=== PATIENT | female | born 1945 | race Caucasian/White ===

== ENCOUNTER → 2022-01-28 13:16 | Outpatient (BNVA) | payer MEDICARE, BC, SELFPAY | PROVIDERS: Family Provider Internal Medicine; PCP Internal Medicine; Visit Provider Internal Medicine Cardiovascular Disease | DX: I25.10 Atherosclerotic heart disease of native coronary artery without angina pectoris (principal); I10 Essential (primary) hypertension; I47.1 Supraventricular tachycardia; E78.2 Mixed hyperlipidemia; I36.1 Nonrheumatic tricuspid (valve) insufficiency; Z79.82 Long term (current) use of aspirin | CPT/HCPCS: 99214 ==

== ENCOUNTER 2022-02-21 09:17 | Outpatient (CLI) | payer MEDICARE, BC, SELFPAY ==
--- NOTE | 2022-02-21 09:58 | CT_ITS ---
WS: [id number] CT NECK TECHNIQUE: Contrast-enhanced CT of the neck with coronal and sagittal reformatted images. CLINICAL INFORMATION: HEMOPTYSIS COMPARISON: None. DLP: 219.[address] scans at [facility] use at least one of these dose optimization techniques: automated e xposure control; mA and/or kV adjustment per patient size (includes targeted exams where dose is matc hed to clinical indication); or iterative reconstruction. FINDINGS: Mastoid air cells are well aerated. Mucosal thickening in the maxillary sinuses. Inspissated secretio ns with calcifications in the RIGHT maxillary sinus with sinusitis. Nodular mucosal thickening in the LEFT maxillary sinus Normal parapharyngeal fat. Normal posterior nasopharynx. Parotid glands are normal. Normal submandibu lar glands. Normal tongue base and posterior nasopharynx. Normal parapharyngeal fat. Normal palatine tonsils. Normal vallecula and piriform sinuses. Normal epiglottis. No evidence of supraglottic or kati ttic mass. Normal subglottic airway. Thyroid gland is normal. Normal visualized thoracic aorta. Marked thoracic scoliosis. Chronic emphyse matous changes in the lung apices. Both vertebral arteries are patent. LEFT dominant vertebral artery. Mild RIGHT carotid bulb calcifica tion. Both ICAs are patent to the skull base. Partially visualized intracranial contents are normal f or age. No cervical lymphadenopathy. Disc space narrowing C3-C4 and C4-C5. CT/CT neck w con* [id number] IMPRESSION: 1. Normal posterior nasopharynx. Normal parapharyngeal fat. 2. Normal salivary glands. 3. No evidence of supraglottic or glottic mass. Normal glottis. Normal subglot tic airway. 4. Marked thoracic scoliosis convex RIGHT. 5. Inflammatory changes in the maxillary sinuses RIGHT greater than LEFT with RIGHT maxillary sinusitis. 6. Mastoid air cells are well aerated.
[2022-02-21 11:32] LABS: Blood Urea Nitrogen 11 mg/dL (8-23)
[2022-02-21] MEDS: iohexol 300 mg/mL 50 mL Btl IV (11:32)
== END 2022-02-21 09:18 | disposition home or self-care (01) ==
LOC: RAD 09:19
PROVIDERS: Family Provider Internal Medicine; PCP Internal Medicine; Visit Provider Specialist
DX: R04.2 Hemoptysis (principal)
CPT/HCPCS: 70491; 82565; 84520

== ENCOUNTER 2022-02-24 09:28 | Outpatient (CLI) | payer MEDICARE, BC, SELFPAY ==
--- NOTE | 2022-02-24 09:48 | CT_ITS ---
WS: [id number] CT CHEST WITH INTRAVENOUS CONTRAST HISTORY: HEMOPTYSIS TECHNIQUE: Contiguous 5 mm axial imaging performed on the thorax. Coronal and sagittal reformats are submitted. All CT scans at [facility] use at least one of these dose optimization techniques: automated exposure control; mA and/or kV adjustment per patient size (includes targeted exams where dose is matched to clinical indication); or iterative reconstruction. CONTRAST: Omnipaque 300; 95 mL IV. DLP: 520.06 mGy.cm COMPARISON: None available. Lungs and central airway: Marked deformity of the lungs and thorax due to the patient's severe RIGHT scoliosis. No mass or pulmonary nodule. Mild bronchial thickening and atelectasis is subsegmental at the RIGHT lung base. There is also mild RIGHT lower lobe bronchiectasis associated with the bronchial wall thickening. Pleura: Normal. No pleural effusion. Heart and pericardium: Moderate enlargement of the heart chambers. Mediastinum and douglas: No mediastinum or hilar adenopathy. Vessels: Very mild atherosclerosis aorta. Normal size pulmonary artery. Extensive atherosclerosis in the [place] coronary arteries. Calcification along the mitral valve annular plane. Chest wall and lower neck: Marked deformity of the chest wall due to the scoliosis. Upper abdomen: Prior gastric bypass. Mild cortical thinning and atrophy. Upper pole of each kidney. N o adrenal mass. Osseous structures: Severe thoracic dextroscoliosis and lumbar levoscoliosis. CT/CT chest w con* [id number] IMPRESSION: 1. Subsegmental atelectasis and bronchial wall thickening and bronchiectasis R IGHT lower lobe. 2. No pulmonary mass or nodule. 3. No adenopathy. 4. Severe thoracolumbar scoliosis resulting in deformity of the thorax. 5. Heavy atherosclerotic calcification within the [place] coronary arteries and mild cardiomegaly.
[2022-02-24] MEDS: iohexol 300 mg/mL 50 mL Btl IV (10:11)
== END 2022-02-24 09:29 | disposition home or self-care (01) ==
LOC: RAD 09:29
PROVIDERS: PCP Internal Medicine; Visit Provider Specialist
DX: R04.2 Hemoptysis (principal); I25.10 Atherosclerotic heart disease of native coronary artery without angina pectoris; I51.7 Cardiomegaly; J98.11 Atelectasis; J47.9 Bronchiectasis, uncomplicated; M41.85 Other forms of scoliosis, thoracolumbar region
CPT/HCPCS: 71260

== ENCOUNTER 2022-07-23 19:47 | Emergency (ER) | payer MEDICARE, BC, SELFPAY ==
[2022-07-23 19:59] VITALS: BP 105/61; PULSE 66; RESP 16; TEMP 36.6; O2SAT 95; BMI 22.4
--- NOTE | 2022-07-23 20:01 | CTR_ITS ---
PROCEDURE INFORMATION: Exam: CT Cervical Spine Without Contrast Exam date and time: 07/23/2022 11:07 PM Age: 77 years old Clinical indication: Other: Syncope; Patient HX: Syncopal episode this evening TECHNIQUE: Imaging protocol: Computed tomography of the cervical spine without contrast. Radiation optimization: All CT scans at this facility use at least one of these dose optimization techniques: automated exposure control; mA and/or kV adjustment per patient size (includes targeted exams where dose is matched to clinical indication); or iterative reconstruction. COMPARISON: CT neck w con* [id number] 02/21/2022 11:25 AM RADIATION DOSE METRICS: Total DLP (mGy-cm): 141.87 FINDINGS: Bones/joints: Degenerative disc changes C3-C4 and C4-C5. No acute bony findings. Lungs: Lung apices are normal. Soft tissues: Unremarkable. CT/CT cervical spin wo con* [id number] IMPRESSION: No acute findings.
--- NOTE | 2022-07-23 20:01 | CTR_ITS ---
PROCEDURE INFORMATION: Exam: CT Head Without Contrast Exam date and time: 07/23/2022 11:04 PM Age: 77 years old Clinical indication: Syncope and collapse; Patient HX: Syncopal episode this evening. TECHNIQUE: Imaging protocol: Computed tomography of the head without contrast. Radiation optimization: All CT scans at this facility use at least one of these dose optimization techniques: automated exposure control; mA and/or kV adjustment per patient size (includes targeted exams where dose is matched to clinical indication); or iterative reconstruction. COMPARISON: CT neck w con* [id number] 02/21/2022 11:25 AM RADIATION DOSE METRICS: Total DLP (mGy-cm): 1028.88 FINDINGS: Brain: Mild periventricular white matter low densities are most consistent with chronic small vessel ischemic change. No findings of intracranial hemorrhage. Cerebral ventricles: No ventriculomegaly. Paranasal sinuses: Visualized sinuses are unremarkable. No fluid levels. Mastoid air cells: Visualized mastoid air cells are well aerated. Bones/joints: No acute findings. Soft tissues: Unremarkable. CT/CT head wo con* [id number] IMPRESSION: No acute intracranial findings. Right maxillary sinus inflammatory changes with acute component.
--- NOTE | 2022-07-23 20:01 | XRR_ITS ---
PROCEDURE INFORMATION: Exam: XR Chest Exam date and time: 07/23/2022 8:14 PM Age: 77 years old Clinical indication: Cough; Additional info: Syncope TECHNIQUE: Imaging protocol: Radiologic exam of the chest. Views: 1 view. COMPARISON: CT chest w con* [id number] 02/24/2022 10:15 AM FINDINGS: Lungs: Unremarkable. No consolidation. Pleural spaces: Unremarkable. No pleural effusion. No pneumothorax. Heart/Mediastinum: Unremarkable. No cardiomegaly. Bones/joints: Severe scoliosis. Suture anchors are seen at left humeral head. XR/XR chest 1V portable [id number] IMPRESSION: No acute findings.
--- NOTE | 2022-07-23 20:41 | ED_ITS ---
HPI - Syncope General: Chief Complaint: Syncope Stated Complaint: Syncope Time Seen by Provider: 07/23/22 20:41 History of Present Illness: Ms. Blackman is a 77-year-old lady with history of hypertension and hyperlipidemia and recent diagnosis of COVID presenting to the emergency department due to dizziness/lightheadedness with syncopal type episode today. She has had poor p.o. intake and was with family about 730. She got a blank look and possible back and she began to follow-up with Gamaliel though she did have her leg caught under her. Currently back to neurologic baseline. Dale es history of frequent similar. Intensity of generalized malaise is moderate. Pain in ankle is throbbing and moderate with worse pain attempting to ambulate. No other specific changes in health, exacerbating, or alleviating factors identified. Onset (ago): hour(s) Description of event: other Witnessed: Yes - by Bystander Review of Systems General: Reports: 10 or more systems reviewed and unremarkable except in HPI and below PFSH ED PFSH: Medical History (Updated 08/01/22 @ 00:01 by ) Arrhythmia ASHD (arteriosclerotic heart disease) GERD (gastroesophageal reflux disease) Hyperlipidemia Hypertension NSTEMI (non-ST elevation myocardial infarction) Tricuspid regurgitation Most recent echocardiogram was done in April 2015. She had a mild to moderate mitral with a moderate tricuspid regurgitation. LV ejection fraction was 71%. Surgical History H/O hernia repair H/O shoulder surgery H/O: hysterectomy Hx of cholecystectomy Family History Father CAD (coronary artery disease) Stroke Son Cancer Other Congestive heart failure Hypertension Denies family history of Diabetes Clotting disorder Dementia Chronic kidney disease (CKD) Suicide Anesthesia complication Bleeding disorder Lung disease Social History Smoking and tobacco status: never smoked Alcohol intake: never Physical Exam Const: COMMON NORMALS: patient oriented x3 and alert GENERAL APPEARANCE: cooperative and well developed HENMT: COMMON NORMALS: normocephalic and atraumatic HEAD & SCALP: normocephalic and atraumatic THROAT: posterior oropharynx normal Eye: COMMON NORMALS: conjunctivae normal CONJUNCTIVA: Yes conjunctivae normal SCLERA: sclerae normal Neck/C-Spine: COMMON NORMALS: supple GENERAL: Yes trachea midline Resp: COMMON NORMALS: clear to auscultation bilaterally EFFORT & INSPECTION: Yes able to speak in complete sentences AUSCULTATION: clear to auscultation bilaterally Cardio: COMMON NORMALS: regular rate and regular rhythm RATE: regular rate RHYTHM: regular rhythm GI: COMMON NORMALS: Soft to palpation PALPATION: Yes Soft to palpation and No Tenderness to palpation present (GI) Extremity: NARRATIVE EXTREMITY EXAM: swelling and tenderness to lateral malleolus. distal cms intact. no open fracture. GENERAL: Yes normal exam except as noted and No edema Neuro: COMMON NORMALS: patient oriented x3, CN's II-XII intact bilaterally, moves all extremities, no focal motor deficits and no sensory deficits noted SENSORIUM/ORIENTATION: Yes alert and No Orientation impaired Psych: COMMON NORMALS: mental status grossly normal and Normal thought process present THOUGHT PROCESS: Normal thought process present Course ED course: - Patient was seen and evaluated by me at bedside - Patient placed on cardiac monitors, IV access obtained - Initial evaluation notable for exam as above. EKG shows sinus rhythm, first AV block, no STEMI. - Labs and xrays personally interpreted by me -IV fluids given - Labs notable for no leukocytosis, no hemoglobin, cytopenia present. Metabolic panel with evidence of dehydration. Delta troponin negative. No evidence of UTI. - Imaging notable for no acute pathology identified on head or cervical spine CT imaging. Chest x-ray negative for acute lobar consolidation or pneumothorax. Ankle x-ray notable for nondisplaced lateral malleolus fracture. - Upon serial reexamination after treatment the patient was improved - Based on patient history, evaluation, and testing as interpreted the most likely cause of the patient's condition is dehydration with possible orthostatic syncope. - The results of ED evaluation were discussed with the patient including possible disposition options. Patient is comfortable with at home management. I discussed prescriptions and/or symptomatic cares (if applicable) including appropriate and responsible use, followup plan, and return precautions. The patient verbalized understanding and felt safe for discharge. Plan to follow-up with orthopedics. - Patient discharged in satisfactory condition. Note: Click bubbles or prepopulated gillette in note writing are used for assistance with data collection and billing and are inherently more limited than narrative and other text portions of this note. Please use narrative for additional clinical history and defer to narrative/free test for any case of contradictory information. If information appears in only free text or click bubble it should be considered present or absent as reported. Please contact note publicity writer for clarifications of clinical information or contradictory information. MDM is a brief summary, contradictory or erroneous seeming information should be clarified and full note should be reviewed. Vital Signs: Vital signs: Vital Signs Temperature 98 F 07/23/22 19:59 Pulse Rate 58 L 07/24/22 01:30 Respiratory Rate 23 H 07/24/22 01:30 Blood Pressure 102/55 07/24/22 01:30 Pulse Oximetry 93 07/24/22 01:30 Oxygen Delivery Me thod 07/23/22 19:59 MDM - Syncope Medical Decision Making 77-year-old lady with recent diagnosis of COVID presenting with syncopal episode. Nonfocal. Head to toe exam with isolated injury. Labs likely con sistent with dehydration patient was improved with fluids. She is comfortable with outpatient management. She will require orthopedic follow-up. Medical Records I reviewed the patient's medical records. Lab Data I reviewed the patient's lab results. : 07/23/22 20:56 07/23/22 20:56 Radiology Impressions Cervical Spine CT 07/23/22 20:01 IMPRESSION: No acute findings. Chest X-Ray 07/23/22 20:01 IMPRESSION: No acute findings. Head CT 07/23/22 20:01 IMPRESSION: No acute intracranial findings. Right maxillary sinus inflammatory changes with acute component. Ankle X-Ray 07/23/22 21:06 IMPRESSION: Nondisplaced lateral malleolar fracture Laboratory Results WBC 4.8 10^3/uL (4.0-10.0) 07/23/22 20:56 RBC 4.69 10^6/uL (4.1-5.3) 07/23/22 20:56 Hgb 13.8 g/dL (11.5-15.3) 07/23/22 20:56 Hct 43.8 % (37.0-47.0) 07/23/22 20:56 MCV 93.4 fl (81-99) 07/23/22 20:56 MCH 29.4 pg (28.0-34.0) 07/23/22 20:56 MCHC 31.5 g/dL (30.0-36.0) 07/23/22 20:56 RDW 14.1 % (12.1-15.1) 07/23/22 20:56 Plt Count 103 10^3/cmm (130-400) L 07/23/22 20:56 MPV 13.7 fL (7.4-10.4) H 07/23/22 20:56 Neut % (Auto) 63.8 % 07/23/22 20:56 Lymph % (Auto) 24.0 % 07/23/22 20:56 [place] % (Auto) 11.4 % 07/23/22 20:56 Eos % (Auto) 0.0 % 07/23/22 20:56 Baso % (Auto) 0.6 % 07/23/22 20:56 Neut # (Auto) 3.03 10^3/uL (1.8-7.7) 07/23/22 20:56 Lymph # (Auto) 1.1 10^3/uL (0.8-4.8) 07/23/22 20:56 [place] # (Auto) 0.5 10^3/uL (0.2-0.9) 07/23/22 20:56 Eos # (Auto) 0.0 10^3/uL (0.0-0.8) 07/23/22 20:56 Baso # (Auto) 0.0 10^3/uL (0.0-0.1) 07/23/22 20:56 Nucleated RBC % (auto) 0 % 07/23/22 20:56 Nucleated RBCs # 0.0 /100WBC 07/23/22 20:56 Sodium 129 mmol/L (136-145) L 07/23/22 20:56 Potassium 4.0 mmol/L (3.5-5.1) 07/23/22 20:56 Chloride 93 mmol/L (98-107) L 07/23/22 20:56 Carbon Dioxide 23 mmol/L (22-29) 07/23/22 20:56 Anion Gap 17.0 (5-19) 07/23/22 20:56 BUN 27 mg/dL (8-23) H 07/23/22 20:56 Creatinine 1.2 mg/dL (0.5-0.9) H 07/23/22 20:56 GFR Calculation Not Reportable 07/23/22 20:56 Glucose 84 mg/dL (65-115) 07/23/22 20:56 Calculated Osmolality 272 mOsm/kg (285-295) L 07/23/22 20:56 Calcium 8.2 mg/dL (8.5-10.5) L 07/23/22 20:56 Total Bilirubin 1.0 mg/dL (0.15-1.2) 07/23/22 20:56 AST 37 U/L (0-32) H 07/23/22 20:56 ALT 15 U/L (0-33) 07/23/22 20:56 Alkaline Phosphatase 103 U/L (35-105) 07/23/22 20:56 Troponin T Baseline 15 ng/L (0-10) H 07/23/22 20:56 Troponin T 120 Minute 13.80 ng/L (0-10) H 07/23/22 23:45 Delta Troponin T -1.20 ABS# (0-10) L 07/23/22 23:45 Total Protein 6.7 g/dL (6.6-8.7) 07/23/22 20:56 Albumin 3.4 g/dL (3.5-5.2) L 07/23/22 20:56 Globulin 3.3 g/dL (1.3-4.6) 07/23/22 20:56 Urine Color Yellow (Yellow) 07/23/22 23:02 Urine Appearance Clear (CLEAR) 07/23/22 23:02 Urine pH 5 (5-7) 07/23/22 23:02 Ur Specific [place] 1.015 (1.005-1.030) 07/23/22 23:02 Urine Protein Neg (Negative) 07/23/22 23:02 Urine Glucose (UA) Norm (Normal) 07/23/22 23:02 Urine Ketones 1+ (Negative) H 07/23/22 23:02 Urine Blood Neg (Negative) 07/23/22 23: Urine Nitrate Negative (Negative) 07/23/22 23:02 Urine Bilirubin Neg (Negative) 07/23/22 23:02 Urine Urobilinogen Norm mg/dL (Negative) 07/23/22 23:02 Ur Leukocyte Esterase Negative (Negative) 07/23/22 23:02 Discharge Plan Discharge Patient Disposition: Home Clinical Impression: Dehydration, Syncope due to orthostatic hypotension, Fractured lateral malleolus Condition: Stable Prescriptions: New oxycodone 5 mg tablet 5 mg PO Q4H PRN (Reason: pain) Qty: 30 0RF No Action nitroglycerin [Nitrostat] 0.4 mg tablet, sublingual 0.4 mg SUBLINGUAL Q5M PRN diphenhydramine HCl [Benadryl] 25 mg capsule 25 mg PO TID PRN pantoprazole 40 mg tablet,delayed release (DR/EC) 40 mg PO QDAY tramadol 50 mg tablet 100 mg PO TID PRN (DME) Cam Walker. See Rx Instructions .ROUTE .MEDSUPPLY Qty: 1 0RF Rx Instructions: As directed (DME) LACE UP ANKLE BRACE . See Rx Instructions .Route .MEDSUPPLY Qty: 1 0RF Rx Instructions: As directed atorvastatin 40 mg tablet 40 mg PO QDAY Qty: 90 3RF aspirin 81 mg tablet,delayed release (DR/EC) 81 mg PO QDAY Qty: 90 3RF metoprolol tartrate 50 mg tablet 50 mg PO BID Qty: 180 3RF Discharge Orders: Discharge ED (Routine); Ordered 07/24/22 Ordered By: Mikal Gray Referrals: Ang Simpson DO [Primary Care Provider] - Discharge Diet: Usual diet Discharge Activity: Limit activity as instructed Patient Instructions: Dehydration (ED), Ankle Fracture (ED), Syncope (ED), Splint Care (ED), Opioid Safety, Pain Management Activity Restrictions/Additional Instructions: Thank you for visiting the emergency department. You were seen and evaluated for syncope with ankle injury. You were found to have a fracture of the lateral malleolus of the ankle. This was splinted and you require follow-up with orthopedics. I will message case management for follow-up. Please do not bear weight on this extremity. The most likely cause of your fainting is dehydration and low blood pressure. Please ensure that you are staying hydrated. Return to the emergency department for uncontrolled pain, loss of sensation or movement in your foot or toes, bluing or significant color changes, any new neurologic symptoms, chest pain, shortness of breath, repeated syncope or anything else that you are concerned about a feel needs emergency department evaluation. Coding Level of Care Code ED Steel Post Installer Supervisor for Dimitri Duke
--- NOTE | 2022-07-23 20:46 | ECG_ITS ---
[facility] Test Date: 2022-07-23 Pat Name: Мария Blackman Department: Room: Gender: Female Per Diem Registered Nurse: : 1945 Requested By: Miakl Gray Order Number: [id number] Melida MD: Sweta Villasenor M.D. Measurements Intervals [place] Rate: 63 P: 59 FL: 183 QRS: 4 QRSD: 111 T: 132 QT: 441 QTc: 454 Interpretive Statements SINUS RHYTHM MODERATE INTRAVENTRICULAR CONDUCTION DELAY [110+ ms QRS DURATION] MODERATE T-WAVE ABNORMALITY, CONSIDER LATERAL ISCHEMIA [-0.1+ mV T-WAVE IN I/aVL/V5/V6] Compared to ECG 05/22/2016 19:37:00 Intraventricular conduction delay now present Possible ischemia now present Sinus arrhythmia no longer present T-wave abnormality still present Electronically Signed On 07-24-2022 12:52:37 CDT by Sweta Villasenor M.D. [id number]
[2022-07-23 21:03] LABS: Basophils % 0.6 %; Hematocrit 43.8 % (37.0-47.0); Hemoglobin 13.8 g/dL (11.5-15.3); Lymphocytes # 1.1 10^3/uL (0.8-4.8); Mean Corpuscular HGB Conc 31.5 g/dL (30.0-36.0); Mean Corpuscular Hemoglobin 29.4 pg (28.0-34.0); Mean Corpuscular Volume 93.4 fl (81-99); Mean Platelet Volume 13.7 fL (7.4-10.4); Monocytes # 0.5 10^3/uL (0.2-0.9); Monocytes % 11.4 %; Neutrophils # 3.03 10^3/uL (1.8-7.7); Neutrophils % 63.8 %; Nucleated Red Blood Cells % 0 %; Platelet Count 103 10^3/cmm (130-400); Positive M 1; Red Blood Count 4.69 10^6/uL (4.1-5.3); Red Cell Distribution Width 14.1 % (12.1-15.1); White Blood Count 4.8 10^3/uL (4.0-10.0)
--- NOTE | 2022-07-23 21:06 | XRR_ITS ---
PROCEDURE INFORMATION: Exam: XR Right Ankle Exam date and time: 07/23/2022 9:12 PM Age: 77 years old Clinical indication: Pain; Ankle; Right; Additional info: Fall, swelling, pain TECHNIQUE: Imaging protocol: Radiologic exam of the Right ankle. Views: 3 or more views. COMPARISON: No relevant prior studies available. FINDINGS: Bones/joints: Nondisplaced fracture of lateral malleolus. No findings of dislocation or subluxation. Soft tissues: Soft tissue swelling laterally. XR/XR ankle RT min 3V* [id number] IMPRESSION: Nondisplaced lateral malleolar fracture
[2022-07-23 21:25] VITALS: BP 107/58; BP 117/59; BP 79/52; PULSE 65; PULSE 67; PULSE 69
[2022-07-23 21:27] LABS: Troponin(5th) Baseline 15 ng/L (0-10)
[2022-07-23 21:28] LABS: Alanine Aminotransferase 15 U/L (0-33); Albumin Level 3.4 g/dL (3.5-5.2); Alkaline Phosphatase 103 U/L (35-105); Aspartate Amino Transferase 37 U/L (0-32); Blood Urea Nitrogen 27 mg/dL (8-23); Calcium 8.2 mg/dL (8.5-10.5); Carbon Dioxide 23 mmol/L (22-29); Chloride 93 mmol/L (98-107); Globulin 3.3 g/dL (1.3-4.6); Glucose 84 mg/dL (65-115); Osmolality Calculated 272 mOsm/kg (285-295); Sodium 129 mmol/L (136-145); Total Protein 6.7 g/dL (6.6-8.7)
[2022-07-23] MEDS: sodium chloride 0.9% 1,000 ML 999 ML IV (21:31)
[2022-07-23 21:54] LABS: Slide Review Slide Review Perform
--- NOTE | 2022-07-23 22:25 | ECG_ITS ---
[facility] Test Date: 2022-07-23 Pat Name: Мария Blackman Department: Room: Gender: Female Liner Checker: : 1945 Requested By: Mikal Gray Order Number: [id number] Melida MD: Sweta Villasenor M.D. Measurements Intervals [place] Rate: 59 P: 82 [place]: 204 QRS: 8 QRSD: 107 T: 88 QT: 442 QTc: 438 Interpretive Statements SINUS BRADYCARDIA POSSIBLE LATERAL MYOCARDIAL INFARCTION , OF INDETERMINATE AGE Compared to ECG 07/23/2022 20:46:36 Myocardial infarct finding now present Sinus rhythm no longer present Intraventricular conduction delay no longer present T-wave abnormality no longer present Possible ischemia no longer present Electronically Signed On 07-24-2022 12:58:53 CDT by Sweta Villasenor M.D. [id number]
[2022-07-23 23:48] LABS: Add Urine Microscopic? NO; Charge for UA Resulting for Rev
[2022-07-24] VITALS: BP 106/56; PULSE 57; RESP 19; O2SAT 93
[2022-07-24] LABS: Bilirubin Urine Neg (Negative); Blood Urine Neg (Negative); Glucose Urine UA Norm (Normal); Ketones Urine 1+ (Negative); Leukocyte Esterase Urine Negative (Negative); Nitrate Urine Negative (Negative); Protein Urine Neg (Negative); Specific Gravity, Urine 1.015 (1.005-1.030); Urine Appearance Clear (CLEAR); Urine Color Yellow (Yellow); Urobilinogen Urine Norm (Negative); pH Urine 5 (5-7)
[2022-07-24 00:30] VITALS: BP 114/56; PULSE 63; RESP 22; O2SAT 94
[2022-07-24 01:00] VITALS: BP 109/53; PULSE 62; RESP 18; O2SAT 97
[2022-07-24 01:30] VITALS: BP 102/55; PULSE 58; RESP 23; O2SAT 93
--- NOTE | 2022-07-24 02:17 | PC.NURSE ---
pt sat up on side of bed, denies dizziness, reports she has a wheelchair at home.
--- NOTE | 2022-07-24 11:33 | DCPLANNER ---
Addendum entered by Kennedi Heller 07/31/22 12:12: Patient had a follow up appointment scheduled for 07.30.[address] Quintero at ortho - patient did attend appointment. Original Note: consumer affairs manager had message to schedule a follow up appointment for patient with ortho. consumer affairs manager sent patients information to the front office staff at ortho. Patients information will be printed and reviewed. Clinic will call patient with appointment information.
== END 2022-07-24 02:45 | disposition home or self-care (01) ==
PROVIDERS: Emergency Provider Emergency Medicine; PCP Internal Medicine
DX: I95.1 Orthostatic hypotension (principal); E86.0 Dehydration; S82.61XA Displaced fracture of lateral malleolus of right fibula, initial encounter for closed fracture; Z79.82 Long term (current) use of aspirin; E78.5 Hyperlipidemia, unspecified; I10 Essential (primary) hypertension; I25.2 Old myocardial infarction; W19.XXXA Unspecified fall, initial encounter
CPT/HCPCS: 29515; 70450; 71045; 72125; 73610; 80053; 81003; 84484; 85025; 93005; 96360; 99285; J7030

== ENCOUNTER → 2022-07-30 08:15 | Outpatient (BNVA) | payer MEDICARE, BC, SELFPAY | PROVIDERS: PCP Internal Medicine; Visit Provider Specialist | DX: S82.64XA Nondisplaced fracture of lateral malleolus of right fibula, initial encounter for closed fracture (principal); W18.30XA Fall on same level, unspecified, initial encounter | CPT/HCPCS: 73610 ==

== ENCOUNTER 2022-07-30 15:07 | Outpatient (CLI) | payer MEDICARE, BC, SELFPAY | END 2022-07-30 15:08 | disposition home or self-care (01) | LOC: SPT 15:08 | PROVIDERS: PCP Internal Medicine; Visit Provider Specialist | DX: Z46.89 Encounter for fitting and adjustment of other specified devices (principal); S82.64XA Nondisplaced fracture of lateral malleolus of right fibula, initial encounter for closed fracture; W18.30XA Fall on same level, unspecified, initial encounter | CPT/HCPCS: 27786; 97760; 99203; L1902; L4361 ==

== ENCOUNTER → 2022-08-20 08:11 | Outpatient (BNVA) | payer MEDICARE, BC, SELFPAY | PROVIDERS: PCP Internal Medicine; Visit Provider Specialist | DX: Z98.890 Other specified postprocedural states (principal); S82.64XD Nondisplaced fracture of lateral malleolus of right fibula, subsequent encounter for closed fracture with routine healing; X58.XXXD Exposure to other specified factors, subsequent encounter | CPT/HCPCS: 73610; 99024 ==

== ENCOUNTER → 2022-09-10 08:19 | Outpatient (BNVA) | payer MEDICARE, BC, SELFPAY | PROVIDERS: PCP Internal Medicine; Visit Provider Specialist | DX: S82.64XA Nondisplaced fracture of lateral malleolus of right fibula, initial encounter for closed fracture (principal); X58.XXXA Exposure to other specified factors, initial encounter | CPT/HCPCS: 73610; 99024 ==

== ENCOUNTER 2023-01-11 12:30 | Emergency (ER) | payer MEDICARE, SELFPAY ==
--- NOTE | 2023-01-11 12:33 | XRR_ITS ---
PROCEDURE INFORMATION: Exam: XR Right Hip Exam date and time: 01/11/2023 12:52 PM Age: 78 years old Clinical indication: Injury or trauma; Fall; Blunt trauma (contusions or hematomas); Right; Groin and hip TECHNIQUE: Imaging protocol: Radiologic exam of the right hip. Views: 1 view hip with pelvis when performed. COMPARISON: No relevant prior studies available. FINDINGS: Bones/joints: Osteopenia. Mild chronic deformity right inferior pubic ramus. Suboptimal visualization of the patient's known right superior pubic ramus and right sacral ala fractures. No dislocation. Mild right hip joint osteoarthrosis. Soft tissues: Grossly unremarkable. XR/XR hip RT 2-3V wo/w pel* [id number] IMPRESSION: 1. Suboptimal visualization of the patient's known right superior pubic ramus and right sacral ala fractures. 2. Additional findings, as above.
[2023-01-11 12:39] VITALS: BP 157/91; PULSE 68; RESP 16; TEMP 36.3; O2SAT 91; BMI 24.2
--- NOTE | 2023-01-11 12:47 | W.ED.FALL ---
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 States she feels like the pain is more in her inner hip and the outer hip and points to her rami. She also did hit her head does have a hematoma but denies any loss of consciousness denies neck pain. Associated symptoms-after fall: Denies abdominal pain, chest pain or headache(s) Review of Systems Const: Denies: fever(s), chills, body aches or change in appetite Eyes: Denies: blurry vision or eye discomfort ENMT: Denies: throat pain or dental pain Card: Denies: chest pain Resp: Denies: dyspnea GI: Denies: abdominal pain, nausea, vomiting or diarrhea : Denies: dysuria Musc: Reports: extremity pain Skin/Breast: Denies: rash Neuro: Denies: headache(s) Psych: Denies: depression Geo/Lymph: Denies: easy bruising All/Imm: Denies: urticaria PFSH ED PFSH: Medical History (Updated 01/11/23 @ 14:02 by Ruben Graves MD) Arrhythmia ASHD (arteriosclerotic heart disease) GERD (gastroesophageal reflux disease) Hyperlipidemia Hypertension NSTEMI (non-ST elevation myocardial infarction) Tricuspid regurgitation Most recent echocardiogram was done in April 2015. She had a mild to moderate mitral with a moderate tricuspid regurgitation. LV ejection fraction was 71%. Surgical History H/O hernia repair H/O shoulder surgery H/O: hysterectomy Hx of cholecystectomy Family History Father CAD (coronary artery disease) Stroke Son Cancer Other Congestive heart failure Hypertension Denies family history of Diabetes Clotting disorder Dementia Chronic kidney disease (CKD) Suicide Anesthesia complication Bleeding disorder Lung disease Social History Smoking and tobacco status: never smoked Alcohol intake: never Physical Exam Const: COMMON NORMALS: no acute distress, patient oriented x3 and healthy appearing HENMT: OTHER: hematoma to crown of head Eye: COMMON NORMALS: Equal, round and reactive pupils present and EOMs intact bilaterally PUPIL: Yes Equal, round and reactive pupils present Neck/C-Spine: COMMON NORMALS: full ROM and supple Chest: COMMONS NORMALS: normal inspection of the chest and normal palpation of entire chest wall Resp: COMMON NORMALS: normal respiratory effort, No retractions, No use of accessory muscles and clear to auscultation bilaterally AUSCULTATION: clear to auscultation bilaterally Cardio: COMMON NORMALS: regular rate, regular rhythm and No murmurs present (Cardio) RATE: regular rate RHYTHM: regular rhythm GI: COMMON NORMALS: Normal to inspection, nondistended, normoactive bowel sounds present, Soft to palpation, non-tender and no masses PALPATION: Yes Soft to palpation Extremity: COMMON NORMALS: normal to inspection and full ROM NARRATIVE EXTREMITY EXAM: Tenderness over right pelvis no obvious hip deformity Neuro: COMMON NORMALS: patient oriented x3, moves all extremities and no focal motor deficits Psych: COMMON NORMALS: mental status grossly normal, Normal thought process present and cooperative THOUGHT PROCESS: Normal thought process present Skin: COMMON NORMALS: no rashes or lesions noted and no wounds GENERAL SKIN EXAM: no rashes or lesions noted Course Vital Signs: Vital signs: Vital Signs Temperature 97.3 F L 01/11/23 12:39 Pulse Rate 72 01/11/23 13:17 Respiratory Rate 70 H 01/11/23 13:30 Blood Pressure 153/83 01/11/23 13:30 Pulse Oximetry 93 01/11/23 13:30 Oxygen Delivery Me thod 01/11/23 13:17 MDM - Fall Medical Decision Making . Patient presents here with a pubic rami fracture from a fall she also had a closed head injury head CT is normal her pain is controlled here she is able to ambulate with a walker she has a walker at home I informed her to weight-bear only as tolerated we will get her orthopedic follow-up she is to return if worsening she understands agrees to plan. Lab Data Radiology Impressions Hip/Pelvis X-Ray 01/11/23 12:33 IMPRESSION: 1. Suboptimal visualization of the patient's known right superior pubic ramus and right sacral ala fractures. 2. Additional findings, as above. Head CT 01/11/23 12:[address]: [address] evidence of acute intracranial pathology. 2. Additional findings, as above. Hip CT 01/11/23 12:48 IMPRESSION: 1. Mildly displaced fractures of the right superior pubic ramus and right sacral ala. 2. Additional findings, as above. Discharge Plan Discharge Patient Disposition: Home Clinical Impression: Closed fracture of right superior pubic ramus, Fall Condition: Stable Prescriptions: New hydrocodone-acetaminophen 5-325 mg tablet 1 tab PO Q6H PRN (Reason: pain) Qty: 14 0RF No Action pantoprazole 40 mg tablet,delayed release (DR/EC) 40 mg PO QAM tramadol 50 mg tablet 100 mg PO BID (DME) Cam Walker. See Rx Instructions .ROUTE .MEDSUPPLY Qty: 1 0RF Rx Instructions: As directed (DME) LACE UP ANKLE BRACE . See Rx Instructions .Route .MEDSUPPLY Qty: 1 0RF Rx Instructions: As directed metoprolol tartrate 50 mg tablet 50 mg PO BID Qty: 180 3RF loperamide 2 mg capsule 2 mg PO TID PRN (Reason: Diarrhea) Nitrostat 0.4 mg Tablet, Sublingual 0.4 mg SUBLINGUAL Q5M PRN (Reason: Chest Pain) Rx Instructions: do not exceed 3 doses per episode Sinus PE Decongestant 10 mg Tablet 10 mg PO DAILY PRN (Reason: Sinus Symptoms) atorvastatin 40 mg tablet 40 mg PO DAILY@17 aspirin 81 mg tablet,delayed release (DR/EC) 81 mg PO QAM Discharge Orders: Discharge ED (Routine); Ordered 01/11/23 Ordered By: Ruben Graves Referrals: Mirza Colbert DO [Physician] - 1-3 days nAg Simpson DO [Primary Care Provider] - Discharge Diet: Advance as tolerated Discharge Activity: Resume usual activity Patient Instructions: Pelvic Fracture (ED) Coding Level of Care Code ED Fire Alarm Inspector for Dimitri Duke
--- NOTE | 2023-01-11 12:48 | CTR_ITS ---
PROCEDURE INFORMATION: Exam: CT Head Without Contrast Exam date and time: 01/11/2023 1:05 PM Age: 78 years old Clinical indication: Injury or trauma; Fall; Blunt trauma (contusions or hematomas); Additional info: Head injury TECHNIQUE: Imaging protocol: Computed tomography of the head without contrast. Axial, coronal and sagittal reformatted images were created and reviewed. Radiation optimization: All CT scans at this facility use at least one of these dose optimization techniques: automated exposure control; mA and/or kV adjustment per patient size (includes targeted exams where dose is matched to clinical indication); or iterative reconstruction. REPORTING DATA: Count of CT and Cardiac NM exams in prior 12 months: This patient has received 5 known CTs and 0 known cardiac nuclear medicine studies in the 12 months prior to the current study. COMPARISON: CT head wo con* [id number] 07/23/2022 11:04 PM RADIATION DOSE METRICS: Total DLP (mGy-cm): 1027.58 FINDINGS: Brain: Patchy areas of hypoattenuation in the periventricular and subcortical white matter, consistent with chronic small vessel ischemic disease. No CT evidence of acute intracranial hemorrhage or acute territorial infarction. No significant mass effect or midline shift. Basal cisterns patent. Cerebral ventricles: Prominence of the cortical sulci, cisterns and ventricular system, consistent with cerebral and cerebellar volume loss. Paranasal sinuses: Circumferential right maxillary sinus mucosal thickening. No air-fluid levels. Mastoid air cells: Grossly unremarkable. Bones/joints: No acute osseous abnormality. Soft tissues: Grossly unremarkable. Vasculature: Calcific atherosclerotic disease in the cavernous internal carotid arteries. CT/CT head wo con* [id number]: 1[address] No CT evidence of acute intracranial pathology. 2. Additional findings, as above.
--- NOTE | 2023-01-11 12:48 | CTR_ITS ---
PROCEDURE INFORMATION: Exam: CT Right Lower Extremity Without Contrast, Hip Exam date and time: 01/11/2023 1:09 PM Age: 78 years old Clinical indication: Injury or trauma; Fall; Blunt trauma; Hip; Right TECHNIQUE: Imaging protocol: CT of the right lower extremity without contrast was performed. Exam focused on the hip. Axial, coronal and sagittal reformatted images were created and reviewed. Radiation optimization: All CT scans at this facility use at least one of these dose optimization techniques: automated exposure control; mA and/or kV adjustment per patient size (includes targeted exams where dose is matched to clinical indication); or iterative reconstruction. REPORTING DATA: Count of CT and Cardiac NM exams in prior 12 months: This patient has received 5 known CTs and 0 known cardiac nuclear medicine studies in the 12 months prior to the current study. COMPARISON: CR (PELVIS, ) 01/11/2023 12:52 PM RADIATION DOSE METRICS: Total DLP (mGy-cm): 296.01 FINDINGS: Bones/joints: Osteopenia. Mildly displaced fracture of the right superior pubic ramus. Mildly buckled fracture of the right sacral alum. Chronic deformity of the bilateral inferior pubic rami. No dislocation. Alignment anatomic. Mild right hip joint osteoarthrosis. Mild degenerative changes of the right sacroiliac joint and pubic symphysis. No erosive or destructive changes. No lytic or blastic lesion. No significant effusion. Soft tissues: Mild soft tissue swelling at the fracture sites. CT/CT hip RT wo con* [id number] IMPRESSION: 1. Mildly displaced fractures of the right superior pubic ramus and right sacral ala. 2. Additional findings, as above.
[2023-01-11] MEDS: HYDROcodone-acetaminophen 5-325 mg Tablet 1 TAB PO (12:57)
[2023-01-11 13:17] VITALS: PULSE 72; O2SAT 96
[2023-01-11 13:30] VITALS: BP 153/83; RESP 70; O2SAT 93
[2023-01-11 14:20] VITALS: BP 141/82; PULSE 69; O2SAT 92
--- NOTE | 2023-01-12 10:24 | DCPLANNER ---
Addendum entered by Kennedi Heller 01/20/23 14:50: Patient had a follow up appointment scheduled with ortho - patient did attend appointment Addendum entered by Kennedi Heller 01/14/23 08:39: Patient has a follow up appointment scheduled for Thursday, January 19, 2023 at 11:[address] lovelace at ortho Original Note: sales strategy manager had message to schedule a follow up appointment for patient with ortho. sales strategy manager sent patients information to the front office staff at ortho. Patients information will be printed and reviewed. Clinic will call patient with appointment information.
== END 2023-01-11 14:22 | disposition home or self-care (01) ==
PROVIDERS: Emergency Provider Emergency Medicine; PCP Internal Medicine
DX: S32.511A Fracture of superior rim of right pubis, initial encounter for closed fracture (principal); Z79.82 Long term (current) use of aspirin; E78.5 Hyperlipidemia, unspecified; I10 Essential (primary) hypertension; I25.2 Old myocardial infarction; W01.0XXA Fall on same level from slipping, tripping and stumbling without subsequent striking against object, initial encounter
CPT/HCPCS: 70450; 73502; 73700; 99284

== ENCOUNTER → 2023-01-19 11:16 | Outpatient (BNVA) | payer MEDICARE, SELFPAY | PROVIDERS: PCP Internal Medicine; Referring Provider Emergency Medicine; Visit Provider Specialist | DX: S32.511A Fracture of superior rim of right pubis, initial encounter for closed fracture (principal); S32.10XA Unspecified fracture of sacrum, initial encounter for closed fracture; W18.09XA Striking against other object with subsequent fall, initial encounter | CPT/HCPCS: 27197; 73502; 99204 ==

== ENCOUNTER → 2023-02-16 10:39 | Outpatient (BNVA) | payer MEDICARE, SELFPAY | PROVIDERS: PCP Internal Medicine; Visit Provider Specialist | DX: S32.591D Other specified fracture of right pubis, subsequent encounter for fracture with routine healing (principal); S32.10XD Unspecified fracture of sacrum, subsequent encounter for fracture with routine healing; X58.XXXD Exposure to other specified factors, subsequent encounter | CPT/HCPCS: 73502; 99024 ==

== ENCOUNTER → 2023-07-21 11:08 | Outpatient (BNVA) | payer MEDICARE, SELFPAY | PROVIDERS: PCP Internal Medicine; Visit Provider Internal Medicine Cardiovascular Disease | DX: I36.1 Nonrheumatic tricuspid (valve) insufficiency (principal); I25.10 Atherosclerotic heart disease of native coronary artery without angina pectoris; I10 Essential (primary) hypertension; E78.2 Mixed hyperlipidemia; I47.10 Supraventricular tachycardia, unspecified | CPT/HCPCS: 99214 ==

== ENCOUNTER 2023-12-04 08:00 | Oncology outpatient (recurring) (ONCR) | payer MEDICARE, SELFPAY ==
[2023-11-13 08:03] VITALS: BP 163/81; PULSE 65; RESP 16; TEMP 36.2; O2SAT 95; BMI 24.6
[2023-11-13] MEDS: sodium chloride 0.9% 250 ML 75 ML IV (08:11)
[2023-11-13] MEDS: iron sucrose 200 MG in sodium chloride 0.9% (100 ml) 100 ML 220 MG IV (08:12)
[2023-11-20 09:30] VITALS: BP 145/77; PULSE 66; RESP 14; TEMP 36; O2SAT 94
[2023-11-20] MEDS: iron sucrose 200 MG in sodium chloride 0.9% (100 ml) 100 ML 220 MG IV (09:56)
[2023-11-20 10:41] VITALS: BP 149/74; PULSE 67; RESP 16; TEMP 36.3; O2SAT 93
[2023-11-27 07:57] VITALS: BP 150/69; PULSE 61; RESP 19; TEMP 36.3; O2SAT 95
[2023-11-27] MEDS: iron sucrose 200 MG in sodium chloride 0.9% (100 ml) 100 ML 220 MG IV (08:18)
[2023-11-27 08:56] VITALS: BP 159/72; PULSE 63; RESP 18; O2SAT 90
[2023-12-04 07:59] VITALS: BP 129/66; PULSE 66; RESP 18; O2SAT 93
[2023-12-04] MEDS: iron sucrose 200 MG in sodium chloride 0.9% (100 ml) 100 ML 220 MG IV (08:27)
== END 2023-12-10 23:59 | disposition home or self-care (01) ==
PROVIDERS: PCP Internal Medicine; Visit Provider Internal Medicine
DX: Z53.9 Procedure and treatment not carried out, unspecified reason (principal); D50.9 Iron deficiency anemia, unspecified
CPT/HCPCS: 96365; J1756; J7050

== ENCOUNTER 2023-12-11 07:48 | Oncology outpatient (recurring) (ONCR) | payer MEDICARE, SELFPAY ==
[2023-12-11 08:00] VITALS: BMI 24.8
[2023-12-11 08:01] VITALS: BP 152/71; PULSE 59; RESP 18; TEMP 36.2; O2SAT 95
[2023-12-11] MEDS: iron sucrose 200 MG in sodium chloride 0.9% (100 ml) 100 ML 220 MG IV (08:14)
[2023-12-11 08:52] VITALS: BP 137/64; PULSE 54; RESP 16; TEMP 36.7; O2SAT 97
== END 2024-01-10 23:59 | disposition home or self-care (01) ==
PROVIDERS: PCP Internal Medicine; Visit Provider Internal Medicine
DX: D50.9 Iron deficiency anemia, unspecified; Z53.9 Procedure and treatment not carried out, unspecified reason
CPT/HCPCS: 96365; J1756

== ENCOUNTER → 2024-02-09 10:23 | Outpatient (BNVA) | payer MEDICARE, SELFPAY | PROVIDERS: PCP Internal Medicine; Visit Provider Internal Medicine Cardiovascular Disease | DX: R07.9 Chest pain, unspecified (principal); I25.10 Atherosclerotic heart disease of native coronary artery without angina pectoris; E78.2 Mixed hyperlipidemia; I10 Essential (primary) hypertension; I36.1 Nonrheumatic tricuspid (valve) insufficiency; R00.1 Bradycardia, unspecified; I44.0 Atrioventricular block, first degree; I47.10 Supraventricular tachycardia, unspecified | CPT/HCPCS: 93005; 99214 ==

== ENCOUNTER 2024-03-04 08:32 | Outpatient (CLI) | payer MEDICARE, SELFPAY ==
--- NOTE | 2024-03-04 09:45 | USCV_ITS ---
Мария Blackman Age: 79 Gender: F : 1945 Exam Date: 03/04/2024 09:36 Ordering Phys: Song Iglesias MD ([email or web address]) Technologist: [email or web address] Exam Location: [facility] [place] Indication: TR/ASHD BP: 114 / 64 HR: 57 Rhythm: Sinus Technical Quality: Adequate MEASUREMENTS (Male / Female) Normal Values 2D ECHO LV Diastolic Diameter PLAX 5.0 cm 4.2 - 5.9 / 3.9 - 5.3 cm IVS Diastolic Thickness 1.0 cm 0.6 - 1.0 / 0.6 - 0.9 cm IVS Systolic Thickness 2.1 cm LVPW Diastolic Thickness 1.6 cm 0.6 - 1.0 / 0.6 - 0.9 cm LVPW Systolic Thickness 2.5 cm LVOT Diameter 2.0 cm LV Ejection Fraction 2D Teich 82.8 % LV Ejection Fraction MOD 2C 62.3 % LV Ejection Fraction 2C AL 67.3 % LA Diameter 3.6 cm RA Systolic Volume 4C AL 19.9 ml RA Systolic Volume 4C MOD 19.4 ml LA Sys Volume AL 50.6 cm cubed LA Sys Volume Index AL 33.2 cm cubed/m squared Aorta at Sinotubular Diameter 1.9 cm IVC Diameter 1.2 cm M-MODE LA Ao Ratio MM 1.3 AV Cusp Separation MM 1.3 cm DOPPLER AV Peak Velocity 327.0 cm/s LVOT Peak Velocity 83.0 cm/s AV Area Cont Eq vti 2.5 cm squared AV Area Cont Eq pk 0.8 cm squared MV Peak Velocity 233.7 cm/s MV Area PHT 4.0 cm squared Mitral E to A Ratio 1.3 TV Peak Velocity 306.0 cm/s TR Peak Velocity 322.0 cm/s TR Peak Gradient 41.5 mmHg TR Mean Velocity 267.0 cm/s TR Mean Gradient 30.1 mmHg TR Velocity Time Integral 128.8 cm TV Peak E Velocity 62.0 cm/s Right Atrial Pressure 3.0 mmHg Pulmonary Artery Systolic Pressu 44.5 mmHg PV Peak Velocity 74.0 cm/s RV Ejection Time 0.3 s FINDINGS Left Ventricle Normal left ventricular size and systolic function, EF 67%. No regional wall motion abnormalities. Grade II/IV diastolic dysfunction, moderately elevated filling pressures. Right Ventricle The right ventricle is normal in size and function. Right Atrium The right atrium is normal in size. Left Atrium Moderateli increased left atrial size. Mitral Valve Mild mitral valve regurgitation. Aortic Valve Mild aortic valve regurgitation. Tricuspid Valve Mild tricuspid valve regurgitation. Pulmonic Valve Pulmonic valve not well visualized. Pericardium Normal pericardium without effusion. Aorta Normal ascending aorta dimension. IVC The inferior vena cava appears normal. CONCLUSIONS Normal left ventricular size and systolic function, EF 67%. No regional wall motion abnormalities. Grade II/IV diastolic dysfunction, moderately elevated filling pressures. Moderateli increased left atrial size. Mild mitral valve regurgitation. Mild aortic valve regurgitation. Mild tricuspid valve regurgitation. Estimated pulmonary artery peak systolic pressure 45 mmHg There is no pericardial effusion. There are no intracardiac masses. Compared to the study from 03/14/2015, there is development of the left-ventricular diastolic dysfunction Dr Song Iglesias MD FAC (Electronically Signed) Final Date: 07 Mar 2024 11:45 S
== END 2024-03-04 08:33 | disposition home or self-care (01) ==
LOC: RAD 08:32
PROVIDERS: PCP Internal Medicine; Visit Provider Internal Medicine Cardiovascular Disease
DX: R06.09 Other forms of dyspnea (principal); I35.1 Nonrheumatic aortic (valve) insufficiency; I36.1 Nonrheumatic tricuspid (valve) insufficiency; I34.0 Nonrheumatic mitral (valve) insufficiency; I51.7 Cardiomegaly
CPT/HCPCS: 93306

== ENCOUNTER → 2024-08-10 09:40 | Outpatient (BNVA) | payer MEDICARE, SELFPAY | PROVIDERS: PCP Internal Medicine; Visit Provider Internal Medicine Cardiovascular Disease | DX: I25.10 Atherosclerotic heart disease of native coronary artery without angina pectoris (principal); E78.2 Mixed hyperlipidemia; I10 Essential (primary) hypertension; I36.1 Nonrheumatic tricuspid (valve) insufficiency; R09.89 Other specified symptoms and signs involving the circulatory and respiratory systems; Z87.898 Personal history of other specified conditions | CPT/HCPCS: 99214 ==

== ENCOUNTER → 2025-02-15 10:29 | Outpatient (BNVA) | payer MEDICARE, SELFPAY | PROVIDERS: PCP Internal Medicine; Visit Provider Internal Medicine Cardiovascular Disease | DX: I25.10 Atherosclerotic heart disease of native coronary artery without angina pectoris (principal); E78.2 Mixed hyperlipidemia; I10 Essential (primary) hypertension; I36.1 Nonrheumatic tricuspid (valve) insufficiency; I47.10 Supraventricular tachycardia, unspecified; R09.89 Other specified symptoms and signs involving the circulatory and respiratory systems; Z79.82 Long term (current) use of aspirin; I25.2 Old myocardial infarction | CPT/HCPCS: 99214 ==

== ENCOUNTER → 2025-08-15 13:29 | Outpatient (BNVA) | payer MEDICARE, SELFPAY | PROVIDERS: PCP Internal Medicine; Visit Provider Internal Medicine Cardiovascular Disease | DX: I25.10 Atherosclerotic heart disease of native coronary artery without angina pectoris (principal); I10 Essential (primary) hypertension; E78.5 Hyperlipidemia, unspecified; I36.1 Nonrheumatic tricuspid (valve) insufficiency; I49.9 Cardiac arrhythmia, unspecified; R09.89 Other specified symptoms and signs involving the circulatory and respiratory systems; Z79.82 Long term (current) use of aspirin; Z87.891 Personal history of nicotine dependence; I25.2 Old myocardial infarction | CPT/HCPCS: 99214 ==